=== PATIENT | female | born 1940 | race Caucasian/White ===

== ENCOUNTER → 2023-06-19 11:11 | Outpatient (REF) | payer OTHER, SELFPAY ==
[2023-06-19 11:30] LABS: Hemoglobin 12.5 g/dL (12.0-16.0); Mean Corp Hgb Conc. 33.8 g/dL (33.0-37.0); Mean Corpuscular Hgb 27.9 pg (27.0-31.0); Mean Corpuscular Volume 82.6 fL (81.0-99.0); Mean Platelet Volume 11.4 fL (7.4-10.4); Platelet Count 155 10^3/uL (130-400); Red Blood Cell Count 4.48 10^6/uL (4.20-5.40); Red Cell Dist. Width 13.2 % (11.5-14.5); White Blood Cell Count 5.9 10^3/uL (4.8-10.8)
[2023-06-19 11:43] LABS: ALT (SGPT) 11 U/L (0-35); AST (SGOT) 27 U/L (14-36); Albumin 3.1 g/dl (3.5-5.0); Alkaline Phosphatase 39 U/L (38-126); Blood Urea Nitrogen 25 mg/dl (7-17); Calcium 8.5 mg/dl (8.4-10.2); Carbon Dioxide 29 mmol/L (22-30); Chloride 104 mmol/L (98-107); Glucose 155 mg/dl (70-99); HDL Cholesterol 48 mg/dl; LDL Cholesterol, Calculated 89 mg/dl; Potassium 3.6 mmol/L (3.5-5.1); Sodium 139 mmol/L (135-145); Total Bilirubin 0.5 mg/dl (0.2-1.3); Total Cholesterol 161 mg/dl (50-199); Triglyceride 121 mg/dl (10-149); Very Low Density Lipoprotein 24 mg/dl (0-30); eGFR > 60.00
[2023-06-19 12:11] LABS: TSH 1.86 uIU/ml (0.47-4.68)
== END ==
LOC: OLABPG 11:11
PROVIDERS: ATTENDING PHYSICIAN Family Medicine
DX: F03.90 Unspecified dementia, unspecified severity, without behavioral disturbance, psychotic disturbance, mood disturbance, and anxiety (principal); E78.5 Hyperlipidemia, unspecified; I10 Essential (primary) hypertension; I48.92 Unspecified atrial flutter
CPT/HCPCS: 36415; 80053; 80061; 83036; 84443; 85027

== ENCOUNTER → 2023-08-14 11:59 | Outpatient (REF) | payer OTHER, MEDICARE, SELFPAY ==
[2023-08-14 12:35] LABS: % Basophils 0.7 % (0-2); % Eosinophils 4.5 % (0-6); % Immature Granulocytes 0.2 % (0-0.5); % Lymphocytes 30.4 % (20.5-51.1); % Monocytes 7.6 % (1.7-9.3); % Neutrophils 56.6 % (42.2-75.2); Absolute Eosinophils 0.2 10^3/uL (0-0.7); Absolute Lymphocytes 1.4 10^3/uL (1.2-3.4); Absolute Monocytes 0.3 10^3/uL (0.1-0.6); Absolute Neutrophils 2.5 10^3/uL (1.4-6.5); Hematocrit 39.1 % (37.0-47.0); Hemoglobin 13.1 g/dL (12.0-16.0); Mean Corp Hgb Conc. 33.5 g/dL (33.0-37.0); Mean Corpuscular Hgb 27.3 pg (27.0-31.0); Mean Corpuscular Volume 81.6 fL (81.0-99.0); Nucleated Red Blood Cells % 0 %; Platelet Count 179 10^3/uL (130-400); Red Blood Cell Count 4.79 10^6/uL (4.20-5.40); Red Cell Dist. Width 13.6 % (11.5-14.5); White Blood Cell Count 4.5 10^3/uL (4.8-10.8)
[2023-08-14 14:00] LABS: TSH Reflex To Free T4 1.12 uIU/ml (0.47-4.68)
== END ==
LOC: OLABPG 11:59
PROVIDERS: ATTENDING PHYSICIAN Family Medicine
DX: F03.90 Unspecified dementia, unspecified severity, without behavioral disturbance, psychotic disturbance, mood disturbance, and anxiety (principal)
CPT/HCPCS: 36415; 84443; 85025

== ENCOUNTER → 2024-04-17 12:44 | Outpatient (REF) | payer MEDICARE, SELFPAY ==
[2024-04-17 12:59] LABS: ALT (SGPT) < 10 U/L (0-35); AST (SGOT) 21 U/L (14-36); Albumin 3.3 g/dl (3.5-5.0); Alkaline Phosphatase 45 U/L (38-126); Blood Urea Nitrogen 25 mg/dl (7-17); Calcium 8.4 mg/dl (8.4-10.2); Carbon Dioxide 28 mmol/L (22-30); Chloride 103 mmol/L (98-107); Glucose 203 mg/dl (70-99); Potassium 4.1 mmol/L (3.5-5.1); Sodium 139 mmol/L (135-145); Total Bilirubin 0.4 mg/dl (0.2-1.3); Total Protein 6.2 g/dl (6.3-8.2); eGFR > 60.00
[2024-04-17 13:06] LABS: % Eosinophils 5.5 % (0-6); % Immature Granulocytes 0.2 % (0-0.5); % Lymphocytes 32.1 % (20.5-51.1); % Neutrophils 53.2 % (42.2-75.2); Absolute Basophils 0.1 10^3/uL (0-0.2); Absolute Eosinophils 0.3 10^3/uL (0-0.7); Absolute Lymphocytes 1.6 10^3/uL (1.2-3.4); Absolute Monocytes 0.4 10^3/uL (0.1-0.6); Absolute Neutrophils 2.6 10^3/uL (1.4-6.5); Hematocrit 38.2 % (37.0-47.0); Hemoglobin 11.9 g/dL (12.0-16.0); Mean Corp Hgb Conc. 31.2 g/dL (33.0-37.0); Mean Corpuscular Hgb 26.3 pg (27.0-31.0); Mean Corpuscular Volume 84.3 fL (81.0-99.0); Mean Platelet Volume 11.6 fL (7.4-10.4); Nucleated Red Blood Cells % 0 %; Platelet Count 193 10^3/uL (130-400); Red Blood Cell Count 4.53 10^6/uL (4.20-5.40); Red Cell Dist. Width 13.6 % (11.5-14.5); White Blood Cell Count 4.9 10^3/uL (4.8-10.8)
[2024-04-17 13:11] LABS: Vitamin D, 25-OH*** 49.3 ng/mL (30-80)
[2024-04-17 14:01] LABS: Folate 8.6 ng/ml (2.76-20); Vitamin B12 652 pg/ml (239-931)
[2024-04-17 15:22] LABS: Glycohemoglobin (HgbA1c) 8.9 % (4.0-5.6)
== END ==
LOC: OLABPG 12:44
PROVIDERS: ATTENDING PHYSICIAN Family Medicine
DX: F03.90 Unspecified dementia, unspecified severity, without behavioral disturbance, psychotic disturbance, mood disturbance, and anxiety (principal); E11.9 Type 2 diabetes mellitus without complications; E55.9 Vitamin D deficiency, unspecified
CPT/HCPCS: 36415; 80053; 82306; 82607; 82746; 83036; 85025

== ENCOUNTER 2024-04-30 16:21 | Emergency (ER) | payer MEDICARE, OTHER, SELFPAY ==
[2024-04-30 16:27] VITALS: BP 100/61
[2024-04-30 16:30] VITALS: BMI 31.1
[2024-04-30 16:51] LABS: Urine Albumin Trace (Neg - Trace); Urine Bilirubin Negative (Negative); Urine Character Clear (Clear); Urine Color Yellow; Urine Glucose Negative (Negative); Urine Ketone Trace (Negative); Urine Leukocyte Trace (Negative); Urine Nitrite Positive (Negative); Urine Occult Blood Negative (Negative); Urine Urobilinogen Negative (Neg - 1+)
[2024-04-30 16:53] LABS: % Eosinophils 2.1 % (0-6); % Immature Granulocytes 0.4 % (0-0.5); % Lymphocytes 18.2 % (20.5-51.1); % Monocytes 7.2 % (1.7-9.3); % Neutrophils 71.1 % (42.2-75.2); Absolute Basophils 0.1 10^3/uL (0-0.2); Absolute Eosinophils 0.1 10^3/uL (0-0.7); Absolute Lymphocytes 0.9 10^3/uL (1.2-3.4); Absolute Monocytes 0.4 10^3/uL (0.1-0.6); Absolute Neutrophils 3.4 10^3/uL (1.4-6.5); Hematocrit 41.5 % (37.0-47.0); Hemoglobin 13.8 g/dL (12.0-16.0); Mean Corp Hgb Conc. 33.3 g/dL (33.0-37.0); Mean Corpuscular Hgb 26.4 pg (27.0-31.0); Mean Corpuscular Volume 79.5 fL (81.0-99.0); Mean Platelet Volume 10.6 fL (7.4-10.4); Nucleated Red Blood Cells % 0 %; Platelet Count 192 10^3/uL (130-400); Red Blood Cell Count 5.22 10^6/uL (4.20-5.40); Red Cell Dist. Width 13.5 % (11.5-14.5); White Blood Cell Count 4.8 10^3/uL (4.8-10.8)
[2024-04-30 17:00] VITALS: BP 119/52
[2024-04-30 17:00] LABS: Urine Bacteria Many (Negative); Urine Red Blood Cell 0-2 /HPF (0-2); Urine Squamous Cell 0-2 /LPF (Few); Urine White Cell 26-30 /HPF (0-5)
[2024-04-30 17:19] LABS: ALT (SGPT) 11 U/L (0-35); AST (SGOT) 30 U/L (14-36); Albumin 3.9 g/dl (3.5-5.0); Alkaline Phosphatase 65 U/L (38-126); Blood Urea Nitrogen 22 mg/dl (7-17); Calcium 8.6 mg/dl (8.4-10.2); Carbon Dioxide 24 mmol/L (22-30); Chloride 103 mmol/L (98-107); Estimated Creatinine Clearance 45 ml/min; Glucose 377 mg/dl (70-99); Lipase 37 U/L (23-300); Potassium 4.6 mmol/L (3.5-5.1); Sodium 138 mmol/L (135-145); Total Bilirubin 0.6 mg/dl (0.2-1.3); Total Protein 6.9 g/dl (6.3-8.2); eGFR > 60.00
--- NOTE | 2024-04-30 17:43 | ED.GENMED ---
History of Present Illness
General
Chief Complaint: Change in Mental Status
Time Seen by Provider: 04/30/24 16:43
History of Present Illness
History of Present Illness:
84-year-old female with history of dementia presenting from nursing facility for agitated behavior. Patient sent from dementia unit at her nursing facility after delusional behavior. Son-in-law at bedside on arrival, notes severe dementia. He
does not feel that she is terribly changed from her baseline. Does note history of UTIs in the past. Patient denies cough, chest pain, difficulty breathing, abdominal pain. No report of fall or trauma per nursing facility. No additional history
obtained at this
Past History
Past History
ED Past Medical History: HTN, Hypercholesterolemia, IDDM and Other (Dementia)
ED Past Surgical History: None
Social History
Tobacco: Former smoker
Alcohol: None
Personal:
Living: fpc ([facility])
Phy Exam
Physical Exam
Physical Exam:
General: Well-appearing, no clinical signs of dehydration, nontoxic and in no acute distress
HEENT: protecting airway
Neck: appears supple
CV: Normal heart rate, regular rhythm
Resp: No accessory muscle use, no increased work of breathing, lungs clear to auscultation bilaterally
Abd: Soft and non-distended, no tenderness to palpation
Extremities: No deformities, no swelling, no erythema
Neuro: alert, oriented to person and place
: deferred
Rectal: deferred
Psych: Normal affect
Skin: Intact
Course
Orders/Labs/Results
Orders:
Orders
04/30/24 16:32
Straight cath- Treatment ONCE
04/30/24 16:37
Complete Blood Count/With Diff Urgent
Comprehensive Metabolic Panel Urgent
Lipase Urgent
Urinalysis Reflex To Culture Urgent
Date Specimen was Collected: 04/30/24
Time Specimen was Collected: 16:32
Urine Microscopic Reflex Cult Urgent
Urine Culture Urgent
LINDSEY Source: U
Specimen Description:
Date Specimen was Collected: 04/30/24
Time Specimen was Collected: 16:32
Abnormal Lab Results
04/30/24
16:37
MCV 79.5 L fL
(81.0-99.0)
MCH 26.4 L pg
(27.0-31.0)
MPV 10.6 H fL
(7.4-10.4)
Absolute Lymphs (auto) 0.9 L 10^3/uL
(1.2-3.4)
Lymphocytes % 18.2 L %
(20.5-51.1)
BUN 22 H mg/dl
(7-17)
Creatinine 0.5 L mg/dL
(0.6-1.0)
Glucose 377 H mg/dl
(70-99)
Urine Ketones Trace A
(Negative)
Urine Nitrite (Reflex) Positive A
(Negative)
Leukocyte Esterase Rfl Trace A
(Negative)
Urine WBC (Reflex) 26-30 A /HPF
(0-5)
Urine Bacteria (Reflex) Many A
(Negative)
04/30/24 16:37
04/30/24 16:37
Vital Signs
Initial and Last Documented VS:
Initial Vital Signs
Pulse Resp BP Pulse Ox
47 19 100/61 96
04/30/24 16:27 04/30/24 16:27 04/30/24 16:27 04/30/24 16:27
Last Documented Vital Signs
Temp Pulse Resp BP Pulse Ox
97.6 F 47 19 100/61 95
04/30/24 16:32 04/30/24 16:27 04/30/24 16:27 04/30/24 16:27 04/30/24 16:30
MDM/Problems Addressed
MDM/Problems Addressed:
84-year-old female with history of dementia presenting from nursing facility for agitated behavior and delusions. Vital signs normal
On exam patient is resting comfortably, no acute distress or discomfort. Son-in-law is at bedside and reports that her mental status appears to be at her baseline. Suspect decompensated dementia. Will screen with laboratory analysis and
urinalysis. Patient otherwise nontoxic, no focal neurologic deficits without concern for acute central neurologic process or acute systemic process.
17:45 - Labs are unremarkable. Urine does show evidence of UTI. Urine culture sent. In the past, sensitive to cephalosporins. Will start on Keflex. Otherwise feel stable for discharge. Will provide transportation back to facility. Son-in-law
updated
*Critical Care Note
Total Time (30-74mins, 75-104mins- exclusive of procedures): Not Applicable
ED Attending Note
-
Portions of this chart may have been created with voice recognition software.� Occasional wrong word or��sound alike� substitutions may have occurred due to the inherent limitations of voice recognition software.
Discharge Plan
Departure
Prescriptions:
No Action
acetaminophen 325 mg Tablet
650 mg PO Q6HPRN PRN (Reason: mild pain/fever>101)
loperamide 2 mg Capsule
2 mg PO TIDPRN MDD 3 tabs/24hr PRN (Reason: loose stool)
alendronate 70 mg Tablet
70 mg PO QWEEK
acetaminophen 500 mg Tablet
500 mg PO BID
simvastatin 40 mg Tablet
40 mg PO HS
potassium citrate 10 mEq (1,080 mg) Tablet Extended Release
10 meq PO DAILY
cyanocobalamin (vitamin B-12) 1,000 mcg/mL Solution
1,000 mcg IM QMONTH
ergocalciferol (vitamin D2) 1,250 mcg (50,000 unit) Capsule
1,250 mcg PO MO
hydroxyzine HCl 10 mg Tablet
10 mg PO DAILY
insulin aspart U-100 100 unit/mL (3 mL) Insulin Pen
2 - 4 sliding scale dose SC TID
Rx Instructions:
if above 250 2 units, if above 350 4 units
metoprolol tartrate 25 mg Tablet
25 mg PO BID
Januvia 25 mg Tablet
25 mg PO DAILY
insulin glargine [Lantus Solostar U-100 Insulin] 100 unit/mL (3 mL) Insulin Pen
7.5 unit SC DAILY
insulin glargine [Lantus Solostar U-100 Insulin] 100 unit/mL (3 mL) Insulin Pen
5 unit SC QPM
melatonin 5 mg Tablet
5 mg PO HS
Paxlovid 150-100 mg Tablets,Dose Pack
1 ea PO BID
Interventions
Interventions:
*Risk Screen - Suicide Last Done: 04/30/24 16:28
*General Assessment Last Done: 04/30/24 16:28
*Neglect/Abuse Screening Last Done: 04/30/24 16:28
ED- Fall Risk Assessment Last Done: 04/30/24 16:31
*ED COVID-19 Vaccine History Last Done: 04/30/24 16:28
ED- Neurological Assessment Last Done: 04/30/24 16:31
Discharge Date and Time
Print Language: FRENCH
[2024-04-30 18:00] VITALS: BP 131/47
[2024-04-30] MEDS: KEFLEX 500 MG PO (18:25)
== END 2024-04-30 19:00 | disposition home or self-care (01) ==
LOC: EMR 16:21
PROVIDERS: EMERGENCY PHYSICIAN Student in an Organized Health Care Education/Training Program; FAMILY PHYSICIAN Family Medicine
DX: N39.0 Urinary tract infection, site not specified (principal); F03.90 Unspecified dementia, unspecified severity, without behavioral disturbance, psychotic disturbance, mood disturbance, and anxiety; I10 Essential (primary) hypertension; E78.00 Pure hypercholesterolemia, unspecified; E11.9 Type 2 diabetes mellitus without complications; Z87.891 Personal history of nicotine dependence
CPT/HCPCS: 99283; 80053; 81003; 81015; 83690; 85025; 87077; 87086

== ENCOUNTER 2024-09-16 22:25 | Emergency (ER) | payer BC, MEDICARE, SELFPAY ==
[2024-09-16 22:27] VITALS: BP 137/48
[2024-09-16 22:37] VITALS: BMI 26.1
--- NOTE | 2024-09-16 23:42 | ED.MUSCINJ ---
HPI-Injury
General
Chief Complaint: Extremity Pain (non-traumatic)
Source: patient
Exam Limitations: none
Time Seen by Provider: 09/16/24 23:11
Nursing documentation reviewed up to this point in time: agreed with
History of Present Illness-Injury
Initial Injury comments:
Pleasantly demented 84-year-old female from [employer] that possibly has right knee pain. Patient does have dementia and is unaware of the knee pain. She states that nothing hurts and she wants to go home.
Past History
Past History
ED Past Medical History: HTN, Hypercholesterolemia, IDDM and Other (Dementia)
ED Past Surgical History: None
Social History
Tobacco: Former smoker
Alcohol: None
Personal:
Living: care home ([facility])
Review of Systems
Review of Systems
Allergies reviewed?: Yes
All Other Systems: ROS reviewed and negative except as documented in HPI and ROS
Constitutional: Reports no symptoms
EENT: Reports no symptoms
Respiratory: Reports no symptoms
Cardiac: Reports no symptoms
ABD/GI: Reports no symptoms
: Reports no symptoms
Musculoskeletal: Reports no symptoms
Skin: Reports no symptoms
Neurological: Reports no symptoms
Endocrine: Reports no symptoms
Hematologic/Lymphatic: Reports no symptoms
Psychiatric: Reports no symptoms
Musculoskeletal Injury Exam
Musculoskeletal Injury Exam
Right Knee:
Pain with Movement?: None
Tender to palpation?: None
Soft tissue swelling?: None
External deformity and angulation?: None
Joint effusion?: None
Contusion?: None
Hematoma-local bleeding into tissue?: None
Strain- Sprain- Tear (Connective tissue injury)?: None
Phy Exam
Physical Exam
Physical Exam:
.
General Physical Exam
General Presentation: well appearing and no apparent distress
General age: appears stated age
General Skin: warm
General Habitus: elderly
General Mental: confused and usual mental status
General Hydration: appears well hydrated
Cardiovascular Exam
Cardiovascular Exam: regular rate/rhythm and no edema
Neurological Exam
Neurological Exam: confused
Musculoskeletal Exam
Musculoskeletal Exam: full ROM, no edema and neuro vasc intact
Skin Exam
Skin Exam: normal color and warm/dry
Psychiatric Exam
Psychiatric Exam: normal mood/affect and labile
Injury Course
Orders/Labs/Results
Orders:
Orders
09/16/24 23:14
Knee, Right 4 or More Views [CR Knee- Right 4 Or More View*] Urgent
Comment:
Reason For Exam: pin without trauma
*Critical Care Note
Total Time (30-74mins, 75-104mins- exclusive of procedures): Not Applicable
Update Note
Update Note:
Patient has no complaints at this time. X-ray was normal for any acute osseous abnormality. Patient wishes to be discharged back to the care home.
ED Attending Note
-
Portions of this chart may have been created with voice recognition software.� Occasional wrong word or��sound alike� substitutions may have occurred due to the inherent limitations of voice recognition software.
Discharge Plan
Departure
Patient Disposition: Alf/SNF
Date of Disposition: 09/17/24
Time of Disposition: 00:58
Discharge Problem:
Acute knee pain, Dementia
Instructions: Muscle and Bone Pain (DC)
Prescriptions:
No Action
acetaminophen 325 mg Tablet
650 mg PO Q6HPRN PRN (Reason: mild pain/fever>101)
loperamide 2 mg Capsule
2 mg PO TIDPRN MDD 3 tabs/24hr PRN (Reason: loose stool)
alendronate 70 mg Tablet
70 mg PO QWEEK
acetaminophen 500 mg Tablet
500 mg PO BID
simvastatin 40 mg Tablet
40 mg PO HS
potassium citrate 10 mEq (1,080 mg) Tablet Extended Release
10 meq PO DAILY
cyanocobalamin (vitamin B-12) 1,000 mcg/mL Solution
1,000 mcg IM QMONTH
ergocalciferol (vitamin D2) 1,250 mcg (50,000 unit) Capsule
1,250 mcg PO MO
hydroxyzine HCl 10 mg Tablet
10 mg PO DAILY
insulin aspart U-100 100 unit/mL (3 mL) Insulin Pen
2 - 4 sliding scale dose SC TID
Rx Instructions:
if above 250 2 units, if above 350 4 units
metoprolol tartrate 25 mg Tablet
25 mg PO BID
Januvia 25 mg Tablet
25 mg PO DAILY
insulin glargine [Lantus Solostar U-100 Insulin] 100 unit/mL (3 mL) Insulin Pen
7.5 unit SC DAILY
insulin glargine [Lantus Solostar U-100 Insulin] 100 unit/mL (3 mL) Insulin Pen
5 unit SC QPM
melatonin 5 mg Tablet
5 mg PO HS
Paxlovid 150-100 mg Tablets,Dose Pack
1 ea PO BID
cephalexin 500 mg capsule
500 mg PO Q12H 7 Days Qty: 14 0RF
Referrals:
Brant Goldman Jr., DO [Family Provider, Internal Medicine]
Activity Restrictions/Additional Instructions:
Thank You for choosing [facility].
It was a pleasure meeting you and taking part in your care. We hope for your continued healing and wellness.
Please read discharge instructions in their entirety. However, they are for general education and may not describe your exact diagnosis at discharge. Information on your ER visit and medical conditions were discussed with you along with appropriate
follow up information...
If indicated, please take your medications as instructed and indicated on discharge paperwork.
Please schedule a follow up appointment as directed. Call to schedule an appointment
Please return to the emergency department with ANY change in, persisting, or worsening of symptoms. If any of your symptoms do not improve, or persist, or become more severe within 6-12 hours, please return to the emergency department for further
care.
Please return to the emergency department if you develop a headache, neck pain/stiffness, fever greater than 100.4F, chest pain, shortness of breath, persistent nausea, vomiting, slurred speech, difficulty walking, numbness/tingling, weakness, signs
of infection or any other symptoms that are worrisome to you.
If you have any questions or concerns please do not hesitate to call the Hospital at or E-mail me directly at [email or web address]
Interventions
Interventions:
*Risk Screen - Suicide Last Done: 09/16/24 22:27
*General Assessment Last Done: 09/16/24 22:27
*Neglect/Abuse Screening Last Done: 09/16/24 22:27
*ED- Fall Risk Assessment Last Done: 09/16/24 22:27
*ED COVID-19 Vaccine History Last Done: 09/16/24 22:27
*Nursing Disposition Last Done: 09/17/24 03:12
ED-Skin Assessment Last Done: 09/16/24 22:38
ED-Peripheral Vascular Assessment Last Done: 09/16/24 22:39
ED-Musculoskeletal Assessment Last Done: 09/16/24 22:38
Discharge Date and Time
Discharge Date/Time: 09/17/24 03:13
Print Language: KHMER
[2024-09-17 03:11] VITALS: BP 130/73
== END 2024-09-17 03:13 ==
LOC: EMR 22:25
PROVIDERS: EMERGENCY PHYSICIAN Student in an Organized Health Care Education/Training Program; FAMILY PHYSICIAN Family Medicine
DX: M25.561 Pain in right knee (principal); F03.90 Unspecified dementia, unspecified severity, without behavioral disturbance, psychotic disturbance, mood disturbance, and anxiety; I10 Essential (primary) hypertension; E78.00 Pure hypercholesterolemia, unspecified; E11.9 Type 2 diabetes mellitus without complications; Z87.891 Personal history of nicotine dependence
CPT/HCPCS: 99283; 73564

== ENCOUNTER 2024-12-25 11:20 | Emergency (ER) | payer BC, MEDICARE, SELFPAY ==
[2024-12-25 11:28] VITALS: BP 132/60; BMI 28.4
[2024-12-25 11:40] VITALS: BP 132/60
[2024-12-25 11:55] LABS: Hematocrit 42.0 % (37.0-47.0); Hemoglobin 13.1 g/dL (12.0-16.0); Mean Corp Hgb Conc. 31.2 g/dL (33.0-37.0); Mean Corpuscular Volume 83.0 fL (81.0-99.0); Nucleated Red Blood Cells % 0 %; Platelet Count 219 10^3/uL (130-400); Red Cell Dist. Width 14.6 % (11.5-14.5)
[2024-12-25 12:00] VITALS: BP 125/58
[2024-12-25 12:06] LABS: Blood Urea Nitrogen 27 mg/dl (7-17); Calcium 8.9 mg/dl (8.4-10.2); Carbon Dioxide 30 mmol/L (22-30); Chloride 104 mmol/L (98-107); Estimated Creatinine Clearance 48 ml/min; Glucose 285 mg/dl (70-99); Sodium 141 mmol/L (135-145); eGFR > 60.00
[2024-12-25 12:14] LABS: Troponin I < 0.012 ng/ml
--- NOTE | 2024-12-25 12:40 | ED.GENMED ---
History of Present Illness
General
Chief Complaint: Chest Pain
Source: patient, ambulance crew, prison and previous hospital records (Previous ED visits including September of this year with complaints of of atraumatic knee pain. April of this year with change in mental status, aggravated dementia, found to
have UTI)
Exam Limitations: dementia
Time Seen by Provider: 12/25/24 11:29
Nursing documentation reviewed up to this point in time: agreed with
History of Present Illness
History of Present Illness:
The patient is an 84-year-old female with a history of prison residency presenting with intermittent chest pain. She indicates the pain 'comes and goes' and believes it started today. She attributes the chest pain potentially to nerves and
expresses concern about her current living situation, describing it as a 'criminal place.' She denies current pain during the exam. The patient does not believe the pain is cardiac in origin but acknowledges the need for evaluation in the emergency
department. Blood work has been initiated, and an EKG shows no acute changes but lacks a prior for comparison. She reports feeling 'very, very nervous' and is concerned about her personal story and previous living circumstances.
She has a history of dementia, resident of [facility] since 2021. She is quite paranoid, delusions of persecution. It is unclear if this paranoia is a chronic issue or no.
She states she 'faked her chest pain to get out of that place'
No previous ED visits for chest pain. There is no reported prior history of CAD, she does however have history of insulin requiring diabetes, GERD, hypertension, dementia.
No prehospital medications provided. Prehospital Accu-Chek 276. Room air pulse ox 98%.
Past History
Past History
ED Past Medical History: GERD, HTN, Hypercholesterolemia, IDDM, Psychiatric and Other (Dementia)
ED Past Surgical History: None
Social History
Tobacco: Former smoker
Alcohol: None
Personal:
Living: prison ([facility])
Family History
Family History: Other (Noncontributory)
Phy Exam
Physical Exam
Physical Exam:
GENERAL: 84-year-old woman appears her stated age, awake and alert, easily communicative, remains accusatory, paranoid, delusions of persecution. She is cooperative and currently denies pain, no shortness of breath.
EYE: anicteric
NECK: Supple, nontender, no meningismus, no significant adenopathy.
ENT: oral mucosa is moist. No rhinorrhea.
CARDIAC: Regular rate and rhythm. no murmur.
LUNGS: Clear breath sounds bilaterally, no acute respiratory distress, no wheezes/rales/rhonchi
ABDOMEN: Soft, nondistended, without focal tenderness, no r/g, no cvat. normoactive BS.
NEUROLOGICAL: Alert and oriented x2, no focal neuro deficits.
SKIN: Warm and dry, normal color, skin intact. No rash.
MUSCULOSKELETAL: No C/C/E. Right upper extremity chronically shortened deformity, peripheral pulses are full and equal b/l. No palpable tenderness.
PSYCH: Paranoid delusions, believes she was involuntarily placed in a prison.
Scores
Heart Score for Chest Pain Patients
STEMI patient?: No
History: Slightly or Non-Suspicious
ECG: Normal
Age: >/= 65 years
Risk Factors: 1 or 2 Risk Factors
Troponin: </= Normal Limit
Heart Score for Chest Pain Patients: 3
Heart Score Risk: 2.5% MACE over next 6 weeks
Course
Orders/Labs/Results
Orders:
Orders
12/25/24 11:25
Electrocardiogram (*1) Urgent
Reason for Study: Chest Pain
12/25/24 11:26
EKG- Treatment ONCE
12/25/24 11:39
Basic Metabolic Panel Urgent
Complete Blood Count/With Diff Urgent
Troponin I Urgent
12/25/24 12:05
CR Chest - 2 Views Urgent
Comment:
Reason For Exam: CP, SOB
12/25/24 12:31
Twnpk-Mncm-Sxnymln Urgent
Potassium Urgent
12/25/24 12:41
Straight cath- Treatment ONCE
12/25/24 12:42
EKG- Treatment ONCE
12/25/24 12:54
Troponin I Urgent
Urinalysis Reflex To Culture Urgent
Date Specimen was Collected: 12/25/24
Time Specimen was Collected: 12:43
Urine Microscopic Reflex Cult Urgent
Urine Culture Urgent
LINDSEY Source: U
Specimen Description:
Date Specimen was Collected: 12/25/24
Time Specimen was Collected: 12:43
12/25/24 13:00
Electrocardiogram (*1) Urgent
Reason for Study: Chest Pain
12/25/24 14:09
Fosfomycin [Monurol] 3 gm PO ONCE ONE
Abnormal Lab Results
12/25/24 12/25/24
11:39 12:54
MCH 25.9 L pg
(27.0-31.0)
MCHC 31.2 L g/dL
(33.0-37.0)
RDW 14.6 H %
(11.5-14.5)
MPV 11.1 H fL
(7.4-10.4)
Absolute Lymphs (auto) 1.0 L 10^3/uL
(1.2-3.4)
BUN 27 H mg/dl
(7-17)
Creatinine 0.5 L mg/dL
(0.6-1.0)
Glucose 285 H mg/dl
(70-99)
Ur Occult Blood Reflex 1+ A
(Negative)
Leukocyte Esterase Rfl 3+ A
(Negative)
Urine RBC 3-6 A /HPF
(0-2)
Urine WBC (Reflex) >100 A /HPF
(0-5)
Urine Bacteria (Reflex) Few A
(Negative)
Urine Glucose 2+ A
(Negative)
Urine Albumin (Reflex) 2+ A
(Neg - Trace)
12/25/24 11:39
12/25/24 12:31
Vital Signs
Initial and Last Documented VS:
Initial Vital Signs
Resp
12
12/25/24 11:24
Last Documented Vital Signs
Temp Pulse Resp BP Pulse Ox
97.7 F 79 25 125/58 98
12/25/24 11:28 12/25/24 12:00 12/25/24 12:00 12/25/24 12:00 12/25/24 12:41
MDM/Problems Addressed
Differential Diagnosis Includes:
The Differential Diagnosis includes, in no particular order and is not limited to:
1. Myocardial Infarction
2. Anxiety or Panic Attack
3. Gastroesophageal Reflux Disease
4. Costochondritis
5. Pulmonary Embolism
6. Aortic Dissection
7. Angina Pectoris
8. Pneumothorax
9. Peptic Ulcer Disease
10. Pericarditis
MDM/Problems Addressed:
Reports of chest pain, shortness of breath. Currently asymptomatic.
EKG shows sinus rhythm with frequent PVCs, bigeminy. Otherwise unremarkable. No old EKGs to compare.
Prehospital EKG similar.
Labs are pending.
Will check chest x-ray.
Will give 324 mg chewable aspirin. Previous ED visit in April
For reported change in mental status, exacerbation of dementia with behavioral disturbances may have been related to a UTI as urine was positive for E. coli.
With current state of paranoia, must consider UTI thus will check urinalysis with reflex to culture.
According to records, next of kin/contact center agent is son-in-law whom patient states has been contacted and is on his way. Hopefully son will be able to assist with patient's baseline mental status.
Chronic conditions affecting care: DM, HTN and Psychiatric illness
*Pulse Oximetry
SaO2: 98
Oxygen Mode of Delivery: Room air
Patient hypoxic: no
*EKG
Interpreted by ED Provider?: Yes
Interpretation: abnormal
Comparison EKG: no comparison EKG present
Rate: normal
Rhythm: sinus and PVC's (Bigeminy)
[place]: normal axis
Interval: long QT
QRS Pattern: poor R-wave progression
Ischemia: no ischemia
*[place] Interpretation
Rate: normal
Interpretation: normal
Rhythm: sinus, PVC's and other (Intermittent bigeminy)
*Critical Care Note
Total Time (30-74mins, 75-104mins- exclusive of procedures): Not Applicable
Update Note
Update Note:
01:55
Patient remains comfortable and chest pain-free. She is now requesting to go home.
Labs are unremarkable.
Troponin x 2 negative.
EKG continues to show bigeminy, no acute ST-T wave abnormalities.
Chest x-ray shows clear lung yin, borderline cardiomegaly, concern for widened thoracic aorta. No previous films to compare.
Patient remains hemodynamically stable and has had no chest pain since arrival to the ED. Peripheral pulses are full and equal bilaterally.
Thoracic aortic dissection is highly unlikely. At this point we will hold off on CTA as patient has poor peripheral access and overall is quite stable and is now eager to be discharged.
Preliminary urinalysis +3 leukocyte esterase, +1 occult blood. Awaiting microscopic results. I still have some concern for occult UTI.
14:10
Urinalysis shows few bacteria but greater than 100 WBCs, 26-30 squamous epithelial cells, uric acid crystals. With significant bacteriuria, concern for potential UTI. Will give a one-time dose of Monurol for potential UTI and await urine culture.
Will discharge back to [facility] for continued care.
Will recommend follow-up with PCP and referred to cardiology for outpatient follow-up as well.
Son has been updated.
ED Attending Note
-
Portions of this chart may have been created with voice recognition software.� Occasional wrong word or��sound alike� substitutions may have occurred due to the inherent limitations of voice recognition software.
Discharge Plan
Departure
Patient Disposition: Snf/SNF
Date of Disposition: 12/25/24
Time of Disposition: 14:10
Patient with high blood pressure during this ER visit?: No
Condition: Good
Discharge Problem:
Nonspecific chest pain, UTI (urinary tract infection) with pyuria
Instructions: Chest Pain DCA Follow Up
Prescriptions:
No Action
acetaminophen 325 mg Tablet
650 mg PO Q6HPRN PRN (Reason: mild pain/fever>101)
loperamide 2 mg Capsule
2 mg PO TIDPRN MDD 3 tabs/24hr PRN (Reason: loose stool)
alendronate 70 mg Tablet
70 mg PO QWEEK
acetaminophen 500 mg Tablet
500 mg PO BID
simvastatin 40 mg Tablet
40 mg PO HS
potassium citrate 10 mEq (1,080 mg) Tablet Extended Release
10 meq PO DAILY
cyanocobalamin (vitamin B-12) 1,000 mcg/mL Solution
1,000 mcg IM QMONTH
ergocalciferol (vitamin D2) 1,250 mcg (50,000 unit) Capsule
1,250 mcg PO MO
hydroxyzine HCl 10 mg Tablet
10 mg PO DAILY
insulin aspart U-100 100 unit/mL (3 mL) Insulin Pen
2 - 4 sliding scale dose SC TID
Rx Instructions:
if above 250 2 units, if above 350 4 units
metoprolol tartrate 25 mg Tablet
25 mg PO BID
Januvia 25 mg Tablet
25 mg PO DAILY
insulin glargine [Lantus Solostar U-100 Insulin] 100 unit/mL (3 mL) Insulin Pen
7.5 unit SC DAILY
insulin glargine [Lantus Solostar U-100 Insulin] 100 unit/mL (3 mL) Insulin Pen
5 unit SC QPM
melatonin 5 mg Tablet
5 mg PO HS
Paxlovid 150-100 mg Tablets,Dose Pack
1 ea PO BID
cephalexin 500 mg capsule
500 mg PO Q12H 7 Days Qty: 14 0RF
Referrals:
Juvenal Shields Sr., MD [Family Provider, Family Practice] - Call in 1-3 days for appt
Interventions
Interventions:
*Risk Screen - Suicide Last Done: 12/25/24 11:28
*General Assessment Last Done: 12/25/24 11:28
*Neglect/Abuse Screening Last Done: 12/25/24 11:28
*ED- Fall Risk Assessment Last Done: 12/25/24 11:28
*ED COVID-19 Vaccine History Last Done: 12/25/24 11:28
ED- Cardiac Assessment Last Done: 12/25/24 11:28
Discharge Date and Time
Print Language: IVORIAN
[2024-12-25 13:03] LABS: ALT (SGPT) < 10 U/L (0-35); AST (SGOT) 16 U/L (14-36); Albumin 3.6 g/dl (3.5-5.0); Alkaline Phosphatase 55 U/L (38-126); Potassium 4.4 mmol/L (3.5-5.1); Total Protein 6.8 g/dl (6.3-8.2)
[2024-12-25 13:08] LABS: Urine Character Slightly Cloudy (Clear)
[2024-12-25 13:30] LABS: Troponin I < 0.012 ng/ml
[2024-12-25 13:55] LABS: Urine White Cell >100 /HPF (0-5)
[2024-12-25 13:56] LABS: Urine Squamous Cell 26-30 /LPF (Few)
[2024-12-25] MEDS: MONUROL 3 GM PO (16:07)
== END 2024-12-25 18:08 ==
LOC: EMR 11:20
PROVIDERS: EMERGENCY PHYSICIAN Emergency Medicine; FAMILY PHYSICIAN Family Medicine
DX: R07.9 Chest pain, unspecified (principal); N39.0 Urinary tract infection, site not specified; E11.9 Type 2 diabetes mellitus without complications; E78.00 Pure hypercholesterolemia, unspecified; F03.90 Unspecified dementia, unspecified severity, without behavioral disturbance, psychotic disturbance, mood disturbance, and anxiety; I10 Essential (primary) hypertension; Z87.891 Personal history of nicotine dependence; Z79.4 Long term (current) use of insulin
CPT/HCPCS: 99285; 71046; 80048; 80076; 81003; 81015; 84132; 84484; 85025; 87077; 87086; 93005

== ENCOUNTER → 2025-01-20 11:09 | Outpatient (REF) | payer BC, MEDICARE, SELFPAY ==
[2025-01-21 08:32] LABS: Glycohemoglobin (HgbA1c) 8.0 % (4.0-5.6)
== END ==
LOC: OLABPG 11:09
PROVIDERS: ATTENDING PHYSICIAN Nurse Practitioner Gerontology
DX: E11.65 Type 2 diabetes mellitus with hyperglycemia (principal)
CPT/HCPCS: 36415; 83036

== ENCOUNTER 2025-02-08 19:43 | Emergency (ER) | payer OTHER, SELFPAY ==
[2025-02-08 19:45] VITALS: BP 139/75
[2025-02-08 19:47] VITALS: BP 139/75
[2025-02-08 20:00] VITALS: BP 150/62
--- NOTE | 2025-02-08 20:20 | ED.GENMED ---
Addendum entered and electronically signed by Arely Echeverria MD 02/09/25 00:09:
CT head report from radiology reviewed by me. Chest x-ray reviewed by me and shows no sign of infiltrate. Left clavicle x-ray reviewed by me. Distal fracture seen by me
Original Note:
History of Present Illness
General
Chief Complaint: Fall
Source: patient
Exam Limitations: none
Time Seen by Provider: 02/08/25 19:50
Nursing documentation reviewed up to this point in time: agreed with
History of Present Illness
History of Present Illness:
The patient is an 84-year-old female the past medical history of dementia arriving from [facility] after a fall. I personally called [facility] and staff reported that the patient was found down on the ground awake. However, the fall was unwitnessed.
Staff reports the patient has recently been stble and denies any recent vomiting, diarrhea or acute illness. Patient appears well and comfortable but is unable to describe why she fell. Patient has bruising of her left forehead. Patient is
complaining of left shoulder area pain. Patient denies chest pain and back pain. She denies hip pain.
Past History
Past History
ED Past Medical History: GERD, HTN, Hypercholesterolemia, IDDM, Psychiatric and Other (Dementia)
ED Past Surgical History: None
Social History
Tobacco: Former smoker
Alcohol: None
Drug: None
Personal:
Living: [facility] ([facility] [place])
Employment: Other
Family History
Family History: Other (Noncontributory)
Review of Systems
Review of Systems
Allergies reviewed?: Yes
Unable to obtain full review of systems at this time due to: dementia
All Other Systems: ROS reviewed and negative except as documented in HPI and ROS
Respiratory: Reports no symptoms
Cardiac: Reports no symptoms
ABD/GI: Reports no symptoms
Musculoskeletal: Reports other (Left shoulder pain)
Phy Exam
Physical Exam
Physical Exam:
GENERAL: Alert , in no apparent distress. Smiling, conversational. Contusion left temporal scalp
EYE: pupils equal and reactive
NECK: Supple, nontender C-spine. Able to move neck freely without any discomfort
ENT: Supple
CARDIAC: Regular rate and rhythm . No chest wall tenderness. No vertebral spine tenderness
LUNGS: Clear breath sounds bilaterally, no acute respiratory distress, no wheezes/rales/rhonchi
ABDOMEN: Soft and nontender
NEUROLOGICAL: Alert, nonfocal, extraocular muscles intact, able to answer simple commands
SKIN: Warm and dry, skin intact.
MUSCULOSKELETAL: Nontender pelvis and hips. Nontender right upper extremity. Nontender left upper extremity. Tenderness left clavicular area. Strong pulses in bilateral upper and lower extremities.
PSYCH: Normal and appropriate interaction.
Course
Orders/Labs/Results
Orders:
Orders
02/08/25 20:45
CT Head W/o Iv Contrast Urgent
Comment:
Reason For Exam: hit head
Shoulder, Left 2 View CR [CR Shoulder - Left Min 2 View*] Urgent
Comment:
Reason For Exam: fall, L shoulder pain
02/08/25 20:46
CR Chest - 2 Views Urgent
Comment:
Reason For Exam: fall, L shoulder pain
Clavicle, Left Complete CR [CR Clavicle - Left Complete ] Urgent
Comment:
Reason For Exam: fall
02/08/25 20:49
Electrocardiogram (*1) Urgent
Reason for Study: Other
Other Reason for Exam: fall
EKG- Treatment ONCE
02/08/25 23:15
Sling Left-Treatment ONCE
Vital Signs
Initial and Last Documented VS:
Initial Vital Signs
Temp Pulse Resp BP Pulse Ox
97.9 F 67 16 139/75 97
02/08/25 19:45 02/08/25 19:45 02/08/25 19:45 02/08/25 19:45 02/08/25 19:45
Last Documented Vital Signs
Temp Pulse Resp BP Pulse Ox
97.9 F 59 20 129/64 93
02/08/25 19:45 02/08/25 23:00 02/08/25 23:00 02/08/25 23:00 02/08/25 23:00
MDM/Problems Addressed
Differential Diagnosis Includes:
Left clavicular fracture, left humeral head fracture. Closed head injury
MDM/Problems Addressed:
Patient presents with acute left scalp contusion and pain in left shoulder area
*Pulse Oximetry
SaO2: 97
Oxygen Mode of Delivery: Room air
Patient hypoxic: no
*EKG
Interpreted by ED Provider?: NA
Interpretation: abnormal
Comparison EKG: no changes
Rate: bradycardiac
Rhythm: sinus
[place]: left axis deviation
Interval: normal interval
QRS Pattern: low voltage
Ischemia: non-specific ST changes
*Forging Machine Operator Interpretation
Rate: bradycardiac
Interpretation: normal
Rhythm: sinus
*Critical Care Note
Total Time (30-74mins, 75-104mins- exclusive of procedures): Not Applicable
Data Reviewed
Source: [facility]
Patient Management
Social determinants of health affecting care: Living situation and Strong social support
Update Note
Update Note:
Patient appears well and comfortable. Patient has been fully awake, alert and smiling. Staff at [facility] reports that patient has been stable without any acute illnesses. Therefore, decision made not to do any blood work on the patient. EKG
shows sinus bradycardia without any signs of heart block.
ED Attending Note
-
Portions of this chart may have been created with voice recognition software.� Occasional wrong word or��sound alike� substitutions may have occurred due to the inherent limitations of voice recognition software.
Discharge Plan
Departure
Patient Disposition: Home (Routine Discharge)
Date of Disposition: 02/08/25
Time of Disposition: 23:15
Patient with high blood pressure during this ER visit?: Yes
Condition: Good
Covid-19: Not Applicable
Discharge Problem:
Closed head injury, Closed fracture of left clavicle
Instructions: Clavicle fracture, Head Injury in Adults (DC), BLOOD PRESSURE
Prescriptions:
No Action
acetaminophen 325 mg Tablet
650 mg PO Q6HPRN PRN (Reason: mild pain/fever>101)
loperamide 2 mg Capsule
2 mg PO TIDPRN MDD 3 tabs/24hr PRN (Reason: loose stool)
alendronate 70 mg Tablet
70 mg PO QWEEK
acetaminophen 500 mg Tablet
500 mg PO BID
simvastatin 40 mg Tablet
40 mg PO HS
potassium citrate 10 mEq (1,080 mg) Tablet Extended Release
10 meq PO DAILY
cyanocobalamin (vitamin B-12) 1,000 mcg/mL Solution
1,000 mcg IM QMONTH
ergocalciferol (vitamin D2) 1,250 mcg (50,000 unit) Capsule
1,250 mcg PO MO
hydroxyzine HCl 10 mg Tablet
10 mg PO DAILY
insulin aspart U-100 100 unit/mL (3 mL) Insulin Pen
2 - 4 sliding scale dose SC TID
Rx Instructions:
if above 250 2 units, if above 350 4 units
metoprolol tartrate 25 mg Tablet
25 mg PO BID
Januvia 25 mg Tablet
25 mg PO DAILY
insulin glargine [Lantus Solostar U-100 Insulin] 100 unit/mL (3 mL) Insulin Pen
7.5 unit SC DAILY
insulin glargine [Lantus Solostar U-100 Insulin] 100 unit/mL (3 mL) Insulin Pen
5 unit SC QPM
melatonin 5 mg Tablet
5 mg PO HS
Paxlovid 150-100 mg Tablets,Dose Pack
1 ea PO BID
cephalexin 500 mg capsule
500 mg PO Q12H 7 Days Qty: 14 0RF
Referrals:
Shabbir Levy MD [Active, Orthopedics]
Referral Note: Please call Sunday (tomorrow) set up an appointment to see an orthopedist within 1 week
UNKNOWN - PT DOES,NOT KNOW [Family Provider]
Activity Restrictions/Additional Instructions:
Return for any mental status changes such as increased confusion, changes of speech, weakness, numbness, or vomiting.
Please arrange follow-up with an orthopedist within 1 week for Polly's clavicle fracture
Interventions
Interventions:
*Risk Screen - Suicide Last Done: 02/08/25 19:45
*General Assessment Last Done: 02/08/25 19:45
*Neglect/Abuse Screening Last Done: 02/08/25 19:45
*ED- Fall Risk Assessment Last Done: 02/08/25 19:45
*ED COVID-19 Vaccine History Last Done: 02/08/25 19:45
*ED Influenza Vaccine History Last Done: 02/08/25 19:45
ED-Musculoskeletal Assessment Last Done: 02/08/25 19:56
ED- Neurological Assessment Last Done: 02/08/25 19:55
ED-Skin Assessment Last Done: 02/08/25 19:56
Discharge Date and Time
Print Language: ETHIOPIAN
[2025-02-08 21:57] VITALS: BP 122/51
[2025-02-08 22:00] VITALS: BP 129/57
[2025-02-08 23:00] VITALS: BP 129/64
[2025-02-09] VITALS: BP 117/49
[2025-02-09 01:00] VITALS: BP 100/46
== END 2025-02-09 01:45 | disposition home or self-care (01) ==
LOC: EMR 19:43
PROVIDERS: EMERGENCY PHYSICIAN Emergency Medicine
DX: S00.03XA Contusion of scalp, initial encounter (principal); S42.035A Nondisplaced fracture of lateral end of left clavicle, initial encounter for closed fracture; W19.XXXA Unspecified fall, initial encounter; F03.90 Unspecified dementia, unspecified severity, without behavioral disturbance, psychotic disturbance, mood disturbance, and anxiety; E11.9 Type 2 diabetes mellitus without complications; E78.00 Pure hypercholesterolemia, unspecified; I10 Essential (primary) hypertension; Z87.891 Personal history of nicotine dependence
CPT/HCPCS: 99284; 70450; 71046; 73000; 73030; 93005